=== PATIENT | male | born 1975 | race Two or more races ===

== ENCOUNTER 2023-01-02 00:17 | Emergency (ER) | payer MEDICAID, OTHER ==
[~2023-01-02] VITALS: Ht 190.5 cm; Wt 108.1 kg
[2023-01-02 01:24] LABS: Rapid Strep A Screen-Throat Negative
[2023-01-02 01:25] LABS: COVID19 ANTIGEN SOFIA FIA NEGATIVE (NEGATIVE)
[2023-01-02 01:26] LABS: Rapid Influenza A Negative (Negative); Rapid Influenza B Negative (Negative)
[2023-01-02 02:40] VITALS: BP 148/94; PULSE 95; RESP 18; TEMP 98.2; O2SAT 97
== END 2023-01-02 03:17 | disposition left against medical advice (07) ==
LOC: ER 00:25
DX: J02.9 Acute pharyngitis, unspecified (principal); R05.9 Cough, unspecified; Z53.21 Procedure and treatment not carried out due to patient leaving prior to being seen by health care provider; Z20.822 Contact with and (suspected) exposure to COVID-19
CPT/HCPCS: 36415; 71045; 87070; 87426; 87804; 87880